=== PATIENT | male | born 1935 | race Caucasian/White ===

== ENCOUNTER 2019-04-20 16:26 | Inpatient (IN) | payer OTHER, MEDICARE ==
[~2019-04-20] VITALS: Ht 185.4 cm; Wt 147.2 kg
[2019-04-20 17:46] LABS: BASOPHILS ABSOLUTE AUTO 0.07 K/mm3 (0.00-0.23); BASOPHILS PERCENT AUTO 1 % (0-2); EOSINOPHILS ABSOLUTE AUTO 0.15 K/mm3 (0.00-0.68); EOSINOPHILS PERCENT AUTO 2 % (0-6); Hematocrit 45.5 % (37.0-53.0); Hemoglobin 14.7 g/dL (13.5-17.5); IMMATURE GRAN ABSOLUTE AUTO 0.02 K/mm3 (0.00-0.10); IMMATURE GRAN PERCENT AUTO 0 % (0-1); LYMPHOCYTES ABSOLUTE AUTO 2.19 K/mm3 (0.84-5.20); LYMPHOCYTES PERCENT AUTO 26 % (21-46); MONOCYTES ABSOLUTE AUTO 0.79 K/mm3 (0.16-1.47); MONOCYTES PERCENT AUTO 10 % (4-13); Mean Corpuscular HGB 30.2 pg (26.0-34.0); Mean Corpuscular HGB Conc 32.3 g/dL (31.5-36.5); Mean Corpuscular Volume 93 fL (80-100); NEUTROPHILS ABSOLUTE AUTO 5.08 K/mm3 (1.96-9.15); NEUTROPHILS PERCENT AUTO 61 % (41-73); Platelet Count 155 K/mm3 (150-400); RDW Coefficient Variation 13.9 % (11.7-14.2); RDW Standard Deviation 47.4 fL (35.1-46.3); Red Blood Cell Count 4.87 M/mm3 (4.30-5.90)
[2019-04-20 18:10] LABS: Alanine Aminotransfer (ALT/SGP 28 U/L (12-78); Albumin, Blood 3.8 g/dL (3.4-5.0); Albumin/Globulin Ratio 1.1 (0.8-1.8); Alk Phos 93 U/L (50-136); Anion Gap 5 mmol/L (6-16); Aspartate Aminotrans (AST/SGOT 21 U/L (12-37); Bilirubin, Total 0.8 mg/dL (0.1-1.0); Blood Urea Nitrogen 30 mg/dL (8-24); Bun/Creatinine Ratio 32.8 (12.0-20.0); CO2, Blood 29 mmol/L (21-32); Calcium, Blood 9.4 mg/dL (8.5-10.1); Chloride, Blood 110 mmol/L (98-108); Creatinine, Blood 0.91 mg/dL (0.60-1.20); Globulin, Blood 3.5 g/dL (2.2-4.0); Glomerular Filtration Rate >60 (60-); Glucose, Blood 123 mg/dL (70-99); Potassium, Blood 3.7 mmol/L (3.5-5.5); Sodium, Blood 144 mmol/L (136-145); Total Protein, Blood 7.3 g/dL (6.4-8.2); Troponin I 0.022 ng/mL (0.000-0.040)
[2019-04-20] MEDS ORDERED: AMLO5 PO (19:09)
[2019-04-20] MEDS ORDERED: ATOR10 PO (19:09)
[2019-04-20] MEDS ORDERED: FINA5 PO (19:09)
[2019-04-20] MEDS ORDERED: LASIX40 MG PO (19:10)
[2019-04-20] MEDS ORDERED: LEVSOD25 PO (19:10)
[2019-04-20] MEDS ORDERED: PRESERVISION A1 EACH PO (19:11)
[2019-04-20] MEDS ORDERED: POTCHL20ER PO (19:12)
[2019-04-20] MEDS ORDERED: Aspir 8181 MG PO (19:13)
[2019-04-20] MEDS ORDERED: TAMS.4ER PO (19:13)
[2019-04-20] MEDS ORDERED: PRAZ1 PO (19:13)
[2019-04-20] MEDS ORDERED: Diovan320 MG PO (19:13)
[2019-04-20] MEDS ORDERED: FISH OIL CONC1000 MG PO (19:17)
[2019-04-20 19:41] LABS: Source, Urine Voided
[2019-04-20 19:46] LABS: Appearance, Urine Clear (Clear); Bilirubin, Urine Neg (Neg); Blood, Urine Neg (Neg); Color, Urine Amber (P-Yellow); Glucose Qualitative, Urine Neg (Neg); Ketones, Urine 1+ (Neg); Leukocyte Esterase, Urine 1+ (Neg); Nitrite, Urine Pos (Neg); Protein, Urine 2+ (Neg); Urobilinogen, Urine 3+ (Normal)
[2019-04-20 19:52] LABS: Bacteria Many /hpf; Mucus Light (0-Heavy); Red Blood Cells, Urine 0-2 /hpf (0-2); Squamous Epithelial Cells Not Seen /hpf (Few)
[2019-04-20] MEDS ORDERED: LUBRICANT EYE DROPS BOTHEYES (20:11)
--- NOTE | 2019-04-20 23:35 | NUR ---
PT ARRIVED TO ICU 2 VIA GURNEY WITH HEART MONITOR ATTACHED AND RN AT BEDSIDE. PT A&OX3. DENIES ANY CHEST PAIN OR SOB AT THIS TIME. PT STATES HE GETS DIZZY AND LIGHTHEADED WHEN TURNED TO HIS RIGHT. ROBERTO AT 3MM BILAT. 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 LS DIMINISHED T/O WITH BIOX 88% ON RA. 2L N/C PLACED WITH BIOX UP 95%. WEARS A CPAP AT HOME. RT NOTIFIED OF NEED FOR CPAP AND WILL SET HIM UP. HEART SOUNDS S1 AND S2 DISTANT AND IRREGULAR. PT IN 3 DEGREE HEART BLOCK WITH PACER PADS ON AND ZOLL ON AND MONITORING AT BEDSIDE. HR 37-52. SKIN PALE PINK, WARM AND DRY. PPP BILAT AND 1+. EDEMA TO BIALT LE'S AT 1+. 18G IV LAC S/L. 20G IV L HAND S/L. BOTH FLUSH AND DRAW WELL. ABD R/O WITH BTX4. VOIDS PER URINAL. TALKED WITH AND DAUGHTER ABOUT PLAN.
--- NOTE | 2019-04-21 01:38 | NUR ---
SBP CONTINUALLY 180-190, HYDRALAZINE 10MG IV GIVEN. WILL CONTINUE TO MONITOR.
[2019-04-21 03:33] LABS: Hematocrit 43.7 % (37.0-53.0); Mean Corpuscular HGB 29.7 pg (26.0-34.0); Mean Corpuscular Volume 93 fL (80-100); Mean Platelet Volume 12.4 fL (9.1-12.4); Platelet Count 145 K/mm3 (150-400); RDW Coefficient Variation 13.8 % (11.7-14.2); RDW Standard Deviation 47.2 fL (35.1-46.3); Red Blood Cell Count 4.72 M/mm3 (4.30-5.90); White Blood Cell Count 9.81 K/mm3 (4.00-11.30)
[2019-04-21 03:55] LABS: Alanine Aminotransfer (ALT/SGP 24 U/L (12-78); Albumin, Blood 3.3 g/dL (3.4-5.0); Alk Phos 84 U/L (50-136); Anion Gap 6 mmol/L (6-16); Aspartate Aminotrans (AST/SGOT 19 U/L (12-37); Bilirubin, Total 0.9 mg/dL (0.1-1.0); Blood Urea Nitrogen 21 mg/dL (8-24); CO2, Blood 27 mmol/L (21-32); Calcium, Blood 8.7 mg/dL (8.5-10.1); Chloride, Blood 111 mmol/L (98-108); Globulin, Blood 3.3 g/dL (2.2-4.0); Glomerular Filtration Rate >60 (60-); Glucose, Blood 114 mg/dL (70-99); Potassium, Blood 3.6 mmol/L (3.5-5.5); Sodium, Blood 144 mmol/L (136-145); Total Protein, Blood 6.6 g/dL (6.4-8.2)
--- NOTE | 2019-04-21 05:23 | NUR ---
SHIFT SUMMARY: PT HAS BEEN IN 3 DEGREE HEART BLOCK SINCE ADMIT TO ICU; PT IS ASSYMPTOMATIC UNLESS HE ROLLS ONTO HIS RIGHT SIDE, THEN HE BECOMES DIZZY. PACER PADS ATTACHED AND MONITORING PT. PT HAS BEEN HYPERTENSIVE AND RECEIVED HYDRALAZINE 10MG IV ONCE FOR ME. LS CLEAR IN UPPERS, DIMINISHED IN BASES. HAS BEEN ON CPAP WITH 2L BLEED IN. CONSULT CALLED TO DR. HAMILTON FOR TODAY.
--- NOTE | 2019-04-21 08:00 | NUR ---
DR HAMILTON: PROVIDER AT BEDSIDE TO EVAL PT. KEEP NPO & PLAN FOR PACER PLACEMENT TODAY. ORDERS PLACED & CONSENT HAS BEEN SIGNED FOR PACER PLACEMENT PROCEDURE. WILL CONTINUE TO MONITOR & UPDATE NEEDED.
--- NOTE | 2019-04-21 08:04 | NUR ---
ASSUMED CARE / DR DAVIS: REPORT RECEIVED FROM SRIKANTH Perez RN. ASSUMED CARE OF THIS PT AT APPROX 0700. ON ASSESSMENT, THE PT IS AWAKE, A&O. HE IS RESTING QUIETLY. LS ARE CLEAR T/O, DIM IN BASES. PT ON CPAP W/ 2L O2 BLEED-IN, O2 SATS > 92%. MONITOR SHOWS 3RD AV BLOCK W/ HR 30s. PT ASYMPTOMATIC OTHER THAN "NOT FEELING GOOD." ZOLL AT BEDSIDE IS ATTACHED TO PT & SET TO MONITOR MODE. PT HAS NO GI COMPLAINTS & IS VOIDING W/O DIFFICULTY USING URINAL. SKIN OVERALL CDI. PROVIDER AT BEDSIDE TO EVAL PT. HE STS CONTINUE W/ CURRENT POC & PLAN FOR CARDIO CONSULT W/ POSSIBLE PACER PLACEMENT TODAY. NO CHANGES AT THIS TIME. WILL CONTINUE TO MONITOR & UPDATE NEEDED.
--- NOTE | 2019-04-21 13:14 | NUR ---
0945: CARE ASSUMED, ASSESSMENT COMPLETED, AIR TRAFFIC INSTRUCTOR AT BEDSIDE TO PERFORM TEST. PT RESTING IN BED, HR 40'S-50'S WITH COMPLETE HEART BLOCK, DENIES CP/PRESSURE/SOB/DIZZINESS/DIAPHORESIS, EVEN WITH REPOSITIONING ONTO SIDE FOR ECHO. SEE ASSESSMENT. PT DENIES NEEDS OR C/O AT THIS TIME, AND DAUGHTER AT BEDSIDE. 1200: PT CONTINUES TO REST IN BED, VOIDING IN URINAL WITHOUT DIFFICULTY, DENIES CARDIAC SYMPTOMS. HR 36-50'S, BP ELEVATED, WILL TREAT PER ORDERS. LS REMAIN CLEAR, SPO2 93% ON RA, PT DENIES SOB. BILATERAL ANKLE EDEMA 1+, PT VOIDING FREQUENTLY AFTER DIURETIC, URINE CLEAR YELLOW. 1330: DR. SCHMITT IN TO ASSESS PATIENT, NO NEW ORDERS AT THIS TIME. AWAITING AUTOMATIC PAINT SPRAYER OPERATOR AVAILABILITY FOR PACER PLACEMENT. PT DENIES NEEDS.
--- NOTE | 2019-04-21 13:43 | NUR ---
PT TO TAKE AWAY MAN AT THIS TIME FOR PACEMAKER PLACEMENT.
--- NOTE | 2019-04-21 16:51 | NUR ---
RETURNED FROM PROCEDURE AT 1620, ALERT AND ORIENTED X4, DRESSING TO LEFT CHEST CDI, LUE IN SLING, PT DENIES PAIN. WATER GIVEN PER ORDERS. BP 155/64, HR 70-75 WITH DUAL CHAMBER PACING. AND DAUGHTER AT BEDSIDE, PT DENIES C/O,
--- NOTE | 2019-04-21 18:11 | NUR ---
Per admit trigger, I met with Mr. Chinchilla and his family to offer information about advanced directive. They told me they have considered completing one for years. But, they did not wish to complete this document at this time. I will remain available.
--- NOTE | 2019-04-21 19:00 | NUR ---
SPOKE WITH DR. HAMILTON, PT NOW PCU STATUS. PT SITTING UP IN BED EATING DINNER, TOLERATING WELL. VSS, HR 100% PACED. DRESSING TO LEFT UPPER CHEST INTACT WITH A SMALL AMOUNT OF SHADOWING, LUE REMAINS IN SLING. PT HAS GOOD COLOR, DENIES CHEST PAIN/SOB/DIZZINESS. AND DAUGHTER REMAIN AT BEDSIDE, REPORT TO ONCOMING SHIFT.
--- NOTE | 2019-04-21 21:33 | NUR ---
ASSUME CARE PT PRESENTS IN BED, A&OX4. LUNGS CLEAR. PATCH ON L CHEST SHOWS SCANT DRAINAGE. WILL MONITOR THROUGHOUT NIGHT. PT W L ARM IN SLING. ON RA WITH SATS ABOVE 92%. 100% PACED WITH HR IN 70S. AFEBRILE. FAMILY AT BEDSIDE. WILL CONTINUE MONITOR.
--- NOTE | 2019-04-22 06:16 | NUR ---
SHIFT SUMMARY NO ACUTE EVNETS OVERNIGHT. PT REMAINS A&OX4, AFEBRILE. VSS. DRESSING ON CHEST WITH SCANT DRAINAGE, NO CHANGE NOTED SINCE BEGINNING OF SHIFT. PT WAS ON CPAP MOST OF THE NIGHT WHILE ASLEEP. WILL CONTINUE TO MONITOR.
--- NOTE | 2019-04-22 09:53 | NUR ---
CARE ASSUMED ASSESSMENT COMPLETED, PT DENIES CARDIAC SYMPTOMS. HR 60'S-70'S 100% PACED, VSS. PT ALERT AND ORIENTED X4, STATES HE FEELS READY TO DC TODAY. COLOR IS GOOD, PT DENIES FATIGUE OR SOB. FINAL DOSE OF ANCEF ADMINISTERED PER JUN. DRESSING TO LEFT CHEST WITH A SMALL AMOUNT OF SHADOWING, CHANGED BY DR. SCHMITT AT BEDSIDE, NO ACTIVE BLEEDING NOTED. LUE REMAINS IN SLING, DR. SCHMITT REVIEWED CXR AND PACER DC INSTRUCTIONS WITH PATIENT AND SPOUSE, PT DENIES C/O.
[2019-04-22] MEDS ORDERED: CEFP200 PO (11:39)
[2019-04-22] MEDS ORDERED: Vsl#3 Capsule1 EACH PO (11:41)
[2019-04-22] MEDS ORDERED: ONDA4ODT SL (11:42)
--- NOTE | 2019-04-22 13:24 | NUR ---
DISCHARGE PT SAT UP IN CHAIR THROUGH LUNCH WITH NO C/O, VSS, TOLERATING CARDIAC MEDICATIONS WITHOUT DIFFICULTY. PT ANXIOUS TO GET HOME, DR. HAMILTON NOTIFIED, CAME IN TO SEE PATIENT, DC ORDERS RECEIVED. PT DENIES CHEST PAIN/PRESSURE, SOB, AND DIZZINESS, NO DIAPHORESIS NOTED. HR 60'S-70'S PACED, BP STABLE. DRESSING TO LEFT CHEST CDI. IV'S DC'D WITH TIPS INTACT, PRESSURE DRESSINGS APPLIED. PT ASSISTED TO DRESS, SLING REMAINS ON LUE. DC, MEDICATION, F/U, AND DR SCHMITT'S PACEMAKER INSTRUCTIONS REVIEWED WITH PT, , AND DAUGHTER, ALL VERBALIZE UNDERSTANDING. QUESTIONS ANSWERED, PRESCRIPTIONS FAXED TO [facility]. PT ASSISTED TO CAR VIA WITH STAFF ASSISTANCE, DC TO HOME AT 1305 WITH BELONGINGS.
== END 2019-04-22 13:05 | disposition home or self-care (01) | DRG 243 ==
LOC: ER 16:26 → ERHOLD 16:28 → ICUE 16:28 → ER 19:21 → ERHOLD 19:21 → ICUE 23:36
PROVIDERS: Emergency Medicine; Physician Assistant; ADMIT Internal Medicine
PROC: 0JH606Z Insertion of Pacemaker, Dual Chamber into Chest Subcutaneous Tissue and Fascia, Open Approach (ICD-10-PCS; principal; 2019-04-21)
PROC: 02HK3JZ Insertion of Pacemaker Lead into Right Ventricle, Percutaneous Approach (ICD-10-PCS; 2019-04-21)
PROC: 02H63JZ Insertion of Pacemaker Lead into Right Atrium, Percutaneous Approach (ICD-10-PCS; 2019-04-21)
DX: I44.2 Atrioventricular block, complete (principal); N39.0 Urinary tract infection, site not specified; N40.0 Benign prostatic hyperplasia without lower urinary tract symptoms; E03.9 Hypothyroidism, unspecified; I10 Essential (primary) hypertension; E78.5 Hyperlipidemia, unspecified; Z79.82 Long term (current) use of aspirin; E66.9 Obesity, unspecified
CPT/HCPCS: 33208; 36415; 71045; 71046; 76937; 80053; 81001; 83735; 83880; 84484; 85025; 85027; 93005; 93010; 93306; 94660; 96365; 96375; 96376; 99152; 99153; 99285-25; C1785; C1898; G0378; J0360; J0690; J0696; J1644; J2250; J3010; J7030; J7040

== ENCOUNTER 2021-07-13 02:41 | Inpatient (IN) | payer OTHER ==
[~2021-07-13] VITALS: Ht 185.4 cm; Wt 145.2 kg
[~2021-07-13 02:41] MED LIST: AMLO5 PO; ATOR10 PO; Aspir 8181 MG PO; CEFP200 PO; Diovan320 MG PO; FINA5 PO; FISH OIL CONC1000 MG PO; LASIX40 MG PO; LEVSOD25 PO; LUBRICANT EYE DROPS BOTHEYES; ONDA4ODT SL; POTCHL20ER PO; PRAZ1 PO; PRESERVISION A1 EACH PO; TAMS.4ER PO; Vsl#3 Capsule1 EACH PO
[2021-07-13 03:15] LABS: BASOPHILS ABSOLUTE AUTO 0.03 K/mm3 (0.00-0.23); BASOPHILS PERCENT AUTO 0 % (0-2); EOSINOPHILS ABSOLUTE AUTO 0.04 K/mm3 (0.00-0.68); EOSINOPHILS PERCENT AUTO 0 % (0-6); Hematocrit 48.6 % (37.0-53.0); Hemoglobin 15.6 g/dL (13.5-17.5); IMMATURE GRAN ABSOLUTE AUTO 0.01 K/mm3 (0.00-0.10); IMMATURE GRAN PERCENT AUTO 0 % (0-1); LYMPHOCYTES ABSOLUTE AUTO 1.09 K/mm3 (0.84-5.20); LYMPHOCYTES PERCENT AUTO 9 % (21-46); MONOCYTES ABSOLUTE AUTO 0.22 K/mm3 (0.16-1.47); MONOCYTES PERCENT AUTO 2 % (4-13); Mean Corpuscular HGB 30.1 pg (26.0-34.0); Mean Corpuscular HGB Conc 32.1 g/dL (31.5-36.5); Mean Corpuscular Volume 94 fL (80-100); Mean Platelet Volume 10.6 fL (9.1-12.4); NEUTROPHILS ABSOLUTE AUTO 10.45 K/mm3 (1.96-9.15); NEUTROPHILS PERCENT AUTO 88 % (41-73); Platelet Count 179 K/mm3 (150-400); RDW Coefficient Variation 13.2 % (11.7-14.2); Red Blood Cell Count 5.18 M/mm3 (4.30-5.90); White Blood Cell Count 11.84 K/mm3 (4.00-11.30)
[2021-07-13 03:33] LABS: Alanine Aminotransfer (ALT/SGP 241 U/L (12-78); Albumin, Blood 3.5 g/dL (3.4-5.0); Albumin/Globulin Ratio 0.9 (0.8-1.8); Alk Phos 183 U/L (50-136); Anion Gap 10 mmol/L (6-16); Aspartate Aminotrans (AST/SGOT 366 U/L (12-37); Bilirubin, Total 2.5 mg/dL (0.1-1.0); Blood Urea Nitrogen 22 mg/dL (8-24); Bun/Creatinine Ratio 22.6 (12.0-20.0); CO2, Blood 27 mmol/L (21-32); Calcium, Blood 9.3 mg/dL (8.5-10.1); Chloride, Blood 106 mmol/L (98-108); Creatinine, Blood 0.97 mg/dL (0.60-1.20); Globulin, Blood 3.9 g/dL (2.2-4.0); Glomerular Filtration Rate >60 (60-); Glucose, Blood 167 mg/dL (70-99); Potassium, Blood 3.7 mmol/L (3.5-5.5); Sodium, Blood 143 mmol/L (136-145); Total Protein, Blood 7.4 g/dL (6.4-8.2)
[2021-07-13 05:53] LABS: Source, Urine Clean Catch
[2021-07-13 05:59] LABS: Blood, Urine 2+ (Neg); Color, Urine Amber (P-Yellow); Glucose Qualitative, Urine Neg (Neg); Ketones, Urine 2+ (Neg); Leukocyte Esterase, Urine 2+ (Neg); Nitrite, Urine Pos (Neg); Protein, Urine 2+ (Neg); Specific Gravity, Urine 1.025 (1.003-1.022); Urobilinogen, Urine 3+ (Normal)
[2021-07-13 06:11] LABS: Appearance, Urine Hazy (Clear); Bilirubin, Urine 2+ (Neg)
[2021-07-13 06:18] LABS: Bacteria Few /hpf; Squamous Epithelial Cells Few /hpf (Few)
[2021-07-13 06:19] LABS: Calcium Oxalate Crystals Mod /hpf; Red Blood Cells, Urine 0-2 /hpf (0-2)
[2021-07-13 13:06] LABS: Influenza A, PCR NEGATIVE (NEGATIVE); Influenza B, PCR NEGATIVE (NEGATIVE); Resp Syncytial Virus, PCR NEGATIVE (NEGATIVE); SARS-Cov-2 (COVID-19) PCR, MMC NEGATIVE (NEGATIVE)
--- NOTE | 2021-07-13 20:01 | NUR ---
SHIFT SUMMARY PT A&OX4, VSS/4LNC, S/P LAP CHICA, SITES CDI. JULIANA PO CLD. AWAITING POST OP VOID. DENIES PAIN. REPORT PROVIDED TO CAMDEN PELAEZ.
[2021-07-14 04:30] LABS: BASOPHILS ABSOLUTE AUTO 0.01 K/mm3 (0.00-0.23); BASOPHILS PERCENT AUTO 0 % (0-2); EOSINOPHILS PERCENT AUTO 0 % (0-6); Hematocrit 41.2 % (37.0-53.0); Hemoglobin 13.3 g/dL (13.5-17.5); IMMATURE GRAN ABSOLUTE AUTO 0.08 K/mm3 (0.00-0.10); IMMATURE GRAN PERCENT AUTO 0 % (0-1); LYMPHOCYTES ABSOLUTE AUTO 0.79 K/mm3 (0.84-5.20); LYMPHOCYTES PERCENT AUTO 4 % (21-46); MONOCYTES ABSOLUTE AUTO 1.17 K/mm3 (0.16-1.47); MONOCYTES PERCENT AUTO 6 % (4-13); Mean Corpuscular HGB 30.4 pg (26.0-34.0); Mean Corpuscular HGB Conc 32.3 g/dL (31.5-36.5); Mean Corpuscular Volume 94 fL (80-100); Mean Platelet Volume 11.2 fL (9.1-12.4); NEUTROPHILS ABSOLUTE AUTO 16.16 K/mm3 (1.96-9.15); NEUTROPHILS PERCENT AUTO 89 % (41-73); Platelet Count 143 K/mm3 (150-400); RDW Coefficient Variation 14.2 % (11.7-14.2); RDW Standard Deviation 49.6 fL (35.1-46.3); Red Blood Cell Count 4.37 M/mm3 (4.30-5.90); White Blood Cell Count 18.21 K/mm3 (4.00-11.30)
[2021-07-14 04:58] LABS: Albumin, Blood 2.7 g/dL (3.4-5.0); Albumin/Globulin Ratio 0.8 (0.8-1.8); Bilirubin, Total 5.3 mg/dL (0.1-1.0); Bun/Creatinine Ratio 21.1 (12.0-20.0); Calcium, Blood 8.5 mg/dL (8.5-10.1); Creatinine, Blood 1.66 mg/dL (0.60-1.20); Globulin, Blood 3.5 g/dL (2.2-4.0); Potassium, Blood 4.3 mmol/L (3.5-5.5); Total Protein, Blood 6.2 g/dL (6.4-8.2)
--- NOTE | 2021-07-14 07:22 | NUR ---
SHIFT SUMMARY POD1 LAP CHICA WITH MILD PAIN T/O SHIFT. LAP SITES REMAIN CDI. PAIN MANAGED WITH TYLENOL AND ROXICODONE. VSS. TELE IN PLACE: PACED AT 60'S. PT ON 2L N/C SATURATING AT 93%. PT REFUSED TO USE HOSPITAL CPAP AT NIGHT, PREFER NASAL CANNULA BUT C/O THIS MORNING THAT HE DIDN'T SLEEP WELL BECAUSE HE DIDN'T HAVE HIS CPAP MACHINE. PROVIDE EDUCATION. PT ALSO ENC USE OF I/S AND DEEP BREATHING EXERCISE. PT'S URINE APPEARS TO BE DARK MADHAVI, NOTIFIED DR. HOLLIS. ENC FOR ORAL HYDRATION. TOLERATING PO INTAKE. DENIES N/V. CLEAR LIQ DIET. CALL LIGHT WITHIN REACH. PROVIDE REPORT TO ONCOMING NURSE.
--- NOTE | 2021-07-14 17:59 | NUR ---
SHIFT SUMMARY POD1 LAP CHICA, A/O X4, VSS, TOLERATING PO, PAIN TOLERABLE WITHOUT MEDICATIONS, WEENED TO ROOM AIR TODAY, PT FAMILY TO BRING IN CPAP FOR TONIGHT, AMBULATED IN ROOM AND HALLS WITH SBA. NO ACUTE EVENTS THIS SHIFT, CALL LIGHT IN REACH, WILL CTM AND REPORT TO ONCOMING DELFINO PELAEZ.
[2021-07-15 04:28] LABS: BASOPHILS ABSOLUTE AUTO 0.01 K/mm3 (0.00-0.23); BASOPHILS PERCENT AUTO 0 % (0-2); EOSINOPHILS ABSOLUTE AUTO 0.02 K/mm3 (0.00-0.68); EOSINOPHILS PERCENT AUTO 0 % (0-6); Hematocrit 38.8 % (37.0-53.0); Hemoglobin 12.2 g/dL (13.5-17.5); IMMATURE GRAN ABSOLUTE AUTO 0.07 K/mm3 (0.00-0.10); IMMATURE GRAN PERCENT AUTO 1 % (0-1); LYMPHOCYTES ABSOLUTE AUTO 0.81 K/mm3 (0.84-5.20); LYMPHOCYTES PERCENT AUTO 6 % (21-46); MONOCYTES ABSOLUTE AUTO 0.95 K/mm3 (0.16-1.47); MONOCYTES PERCENT AUTO 7 % (4-13); Mean Corpuscular HGB 30.3 pg (26.0-34.0); Mean Corpuscular HGB Conc 31.4 g/dL (31.5-36.5); Mean Corpuscular Volume 96 fL (80-100); Mean Platelet Volume 11.3 fL (9.1-12.4); NEUTROPHILS ABSOLUTE AUTO 11.29 K/mm3 (1.96-9.15); NEUTROPHILS PERCENT AUTO 86 % (41-73); Platelet Count 123 K/mm3 (150-400); RDW Coefficient Variation 14.6 % (11.7-14.2); RDW Standard Deviation 51.9 fL (35.1-46.3); Red Blood Cell Count 4.03 M/mm3 (4.30-5.90); White Blood Cell Count 13.15 K/mm3 (4.00-11.30)
[2021-07-15 04:48] LABS: Albumin, Blood 2.5 g/dL (3.4-5.0); Albumin/Globulin Ratio 0.7 (0.8-1.8); Bilirubin, Total 1.7 mg/dL (0.1-1.0); Bun/Creatinine Ratio 32.4 (12.0-20.0); Calcium, Blood 8.2 mg/dL (8.5-10.1); Creatinine, Blood 1.48 mg/dL (0.60-1.20); Globulin, Blood 3.4 g/dL (2.2-4.0); Magnesium, Blood 2.3 mg/dL (1.6-2.4); Potassium, Blood 4.1 mmol/L (3.5-5.5); Total Protein, Blood 5.9 g/dL (6.4-8.2)
--- NOTE | 2021-07-15 05:36 | NUR ---
SHIFT SUMMARY NO ACUTE CHANGES OVERNIGHT. POD2 LAP CHICA WITH 5 LAP SITES (DERMABOND) REMAIN CDI. BT PRESENT. PT REPORTS PASSING FLATUS. VOIDING DARK MADHAVI URINE, ENC TO DRINK MORE FLUIDS. IV NS STILL INFUSING. TOLERATING PO INTAKE DENIES N/V. VSS. TELE IN PLACED , PACED AT 60'S.PT WOKE UP AT 0300 AM, CONFUSED BUT ABLE TO REORIENT. DESATS AT LOW 80'S ON ROOM AIR AT THAT TIME AND HE WAS SITTING AT THE EDGE OF THE BED. 4L 02 AT N/C GIVEN, SATS IMPROVED TO 90-94%. PT WEARS CPAP AT NIGHT. HX SADIQ. PT ALSO DESATS AFTER HE STOOD UP AT THE SIDE OF THE BED. VOIDING IN THE URINAL. ABLE TO STAND AND MAKE FEW STEPS A THE SIDE OF THE BED. LINEN CHANGED AND PT HAD FULL BODY SPONGE BATH, SHAMPOO. IV FLUIDS INFUSING. ABX ADMINSTERED VIA IV. CALL LIGHT WITHIN REACH WILL CONTINUE TO MONITOR AND NOTIFY ONCOMING NURSE.
--- NOTE | 2021-07-15 17:08 | NUR ---
SHIFT SUMMARY PT POD #2 FOR LAP CHICA. 5 LAP SITES ON ABD WITH DERMABOND CDI. PT C/O MINIMAL PAIN. PT IS CURRENTLY ON 4 LITERS NC AND CPAP WHILE SLEEPING. PT DESATS INTO THE LOW 80'S WHEN NOT ON OXYGEN. REPORTS NOT USING O2 AT HOME BUT ADMITS TO HAVING A HARD TIME BREATHING AT HOME. VSS. WILL REPORT TO DELFINO PELAEZ.
[2021-07-16 04:43] LABS: BASOPHILS ABSOLUTE AUTO 0.02 K/mm3 (0.00-0.23); BASOPHILS PERCENT AUTO 0 % (0-2); EOSINOPHILS ABSOLUTE AUTO 0.11 K/mm3 (0.00-0.68); EOSINOPHILS PERCENT AUTO 1 % (0-6); Hematocrit 39.5 % (37.0-53.0); Hemoglobin 12.6 g/dL (13.5-17.5); IMMATURE GRAN ABSOLUTE AUTO 0.04 K/mm3 (0.00-0.10); IMMATURE GRAN PERCENT AUTO 0 % (0-1); LYMPHOCYTES ABSOLUTE AUTO 1.08 K/mm3 (0.84-5.20); LYMPHOCYTES PERCENT AUTO 12 % (21-46); MONOCYTES PERCENT AUTO 9 % (4-13); Mean Corpuscular HGB 30.2 pg (26.0-34.0); Mean Corpuscular HGB Conc 31.9 g/dL (31.5-36.5); Mean Corpuscular Volume 95 fL (80-100); Mean Platelet Volume 11.4 fL (9.1-12.4); NEUTROPHILS ABSOLUTE AUTO 7.09 K/mm3 (1.96-9.15); NEUTROPHILS PERCENT AUTO 78 % (41-73); Platelet Count 129 K/mm3 (150-400); RDW Coefficient Variation 14.3 % (11.7-14.2); RDW Standard Deviation 50.3 fL (35.1-46.3); Red Blood Cell Count 4.17 M/mm3 (4.30-5.90); White Blood Cell Count 9.14 K/mm3 (4.00-11.30)
[2021-07-16 05:03] LABS: Albumin, Blood 2.6 g/dL (3.4-5.0); Albumin/Globulin Ratio 0.7 (0.8-1.8); Bun/Creatinine Ratio 30.6 (12.0-20.0); Calcium, Blood 8.4 mg/dL (8.5-10.1); Creatinine, Blood 1.21 mg/dL (0.60-1.20); Globulin, Blood 3.5 g/dL (2.2-4.0); Magnesium, Blood 2.4 mg/dL (1.6-2.4); Potassium, Blood 3.7 mmol/L (3.5-5.5); Total Protein, Blood 6.1 g/dL (6.4-8.2)
--- NOTE | 2021-07-16 05:31 | NUR ---
SHIFT SUMMARY POD3 ACUTE CHICA WITH 5 LAP SITE REMAIN CDI. PT APPEARS TO BE IMPROVING OVERNIGHT. SATS AT 94-96% ON 4L 02, TOLERATING MORE MOVEMENT TODAY. PT WOULD SIT AT THE EDGE OF THE BED MULTIPLE TIMES TODAY. ORAL CARE AND SPONGE BATH X1. CPAP AT NIGHT. PT SLEPT GOOD OVERNIGHT. URINE APPEARS TO BE SILK SCREEN PROCESSOR THAN YESTERDAY. PT TOLERATING PO INTAKE. DENIES N/V. IV ABX ADMINSITERED. PT REPORTS MINIMAL. ENC USE OF I/S. PT IS A MOUTH BREATHER, ENC PROPER BREATHING EXERCISE. CALL LIGHT WITHIN REACH. WILL CONTINUE TO MONITOR AND WILL PROVIDE REPORT TO ONCOMING NURSE.
[2021-07-16] MEDS ORDERED: VISBIOME 112.51 EACH PO (13:53)
[2021-07-16] MEDS ORDERED: LEVAQUIN750 MG PO (13:54)
--- NOTE | 2021-07-16 16:03 | NUR ---
SHIFT SUMMARY PT DC AT HOME WITH H&H. PT MEDICATION[facility] AND [facility] AND CALLED TO [facility] INSTEAD OF SENDING AT HOME. PT EDUCATED ABOUT POST OP CARE AND INCISION CARE PER INSTRUCTED ABOUT THE MEDICATION AND O2 USE. PT WILL NEED 2L UPON EXERTION PER RT. DC'D IV. LASIX GIVEN AND ABX BEFORE GOING HOME. BELONGINGS WITH PT
--- NOTE | 2021-07-18 14:22 | NUR ---
Received referral from nurse healthcare consultant (Delaney Burton) on 07/16/2021. Patient was admitted to [facility] on 07/13/2021 due to acute cholecystitis sepsis. Patient discharged 07/16/2021 with orders for home health and elected [facility]. Contacted patient at home on 07/17/2021 at 1119 to further discuss the above. Patient did not answer, left message asking for patient to return this report writer's call. Contacted patient again today- 07/18/2021 to further discuss the above. Spoke with patient's daughter (Coreen Weathers) who declines services on behalf of patient stating "I'm not sure what they would do, he just has surgery, and they told him that he should be fine by Friday (07/23/2021)". Patient's daughter states that patient has a follow-up appointment with his PCP on Friday- 07/20/2021. Discussed with patient's daughter, they could further discuss with patient's PCP and if PCP felt that patient needed home health, PCP could make the referral for home health services. Patient's daughter is agreeable to this plan and verbalized understanding. No further interventions required. Faina Valdes Referral Liaison
== END 2021-07-16 15:40 | disposition home health service (06) | DRG 853 ==
LOC: ER 02:41 → SURS 02:42
PROVIDERS: Emergency Medicine; Internal Medicine; Surgery; ADMIT Internal Medicine
PROC: BF532Z0 Other Imaging of Gallbladder and Bile Ducts using Fluorescing Agent, Intraoperative (ICD-10-PCS; 2021-07-13)
PROC: 3E03329 Introduction of Other Anti-infective into Peripheral Vein, Percutaneous Approach (ICD-10-PCS; 2021-07-13)
PROC: 0FT44ZZ Resection of Gallbladder, Percutaneous Endoscopic Approach (ICD-10-PCS; principal; 2021-07-13 13:00)
DX: A41.51 Sepsis due to Escherichia coli [E. coli] (principal); J96.01 Acute respiratory failure with hypoxia; K83.09 Other cholangitis; N17.9 Acute kidney failure, unspecified; E87.2 Acidosis; K80.00 Calculus of gallbladder with acute cholecystitis without obstruction; J98.11 Atelectasis; Z20.822 Contact with and (suspected) exposure to COVID-19; R65.20 Severe sepsis without septic shock; R79.89 Other specified abnormal findings of blood chemistry; I25.10 Atherosclerotic heart disease of native coronary artery without angina pectoris; I25.2 Old myocardial infarction; Z95.5 Presence of coronary angioplasty implant and graft; G47.33 Obstructive sleep apnea (adult) (pediatric); E03.9 Hypothyroidism, unspecified; E78.5 Hyperlipidemia, unspecified; N40.0 Benign prostatic hyperplasia without lower urinary tract symptoms; Z95.0 Presence of cardiac pacemaker; Z87.891 Personal history of nicotine dependence; Z79.82 Long term (current) use of aspirin; Z79.899 Other long term (current) drug therapy
CPT/HCPCS: 0241U; 36415; 71046; 74176; 74300; 76705; 80053; 81001; 83605; 83690; 83735; 83880; 85025; 87040; 87077; 87186; 88304; 93005; 93010; 94660; 94760; 94761; 94762; 96365; 96366; 96375; 99285-25; A9270; C1729; J0696; J1100; J1170; J1940; J2370; J2405; J2543; J2704; J3010; J7030; J7050; J7120